=== PATIENT | male | born 1940 | race Caucasian/White ===

== ENCOUNTER 2017-12-25 14:09 | Emergency (ER) | payer MEDICARE, OTHER ==
[~2017-12-25] VITALS: Ht 188 cm; Wt 115.7 kg
[~2017-12-25 14:09] MED LIST: ALBU90OI61 INH; AMIO200; AMIO200 PO; AMLO5 PO; ASCO1ER; ASCO500 PO; ASPI81EC; ASPI81EC PO; CALCAVITD; CALCAVITD PO; CARV6.25; DIPH50; FURO40 PO; GARCINIA CAMBO1 EACH; LEVSOD50 PO; LISI5; LOSA25 PO; MULVITB&C PO; MULVITMIND PO; MULVITMINF; NAPR220 PO; NAPR375 PO; NEBI10 PO; NEBI5 PO; NIACIN FLUSH FREE; Norco 5-325 Ta1 EACH PO; OMEP20ER PO; POTCHL20ER PO; PRAV20; PRAV20 PO; PROBIOTIC1 EAC1; Vitamin C100 M1 PO; WARF5
[2017-12-25 16:36] LABS: BASOPHILS ABSOLUTE AUTO 0.06 K/mm3 (0.00-0.23); BASOPHILS PERCENT AUTO 1 % (0-2); EOSINOPHILS PERCENT AUTO 6 % (0-6); Hematocrit 40.1 % (37.0-53.0); Hemoglobin 12.8 g/dL (13.5-17.5); IMMATURE GRAN ABSOLUTE AUTO 0.03 K/mm3 (0.00-0.10); IMMATURE GRAN PERCENT AUTO 0 % (0-1); LYMPHOCYTES PERCENT AUTO 13 % (21-46); MONOCYTES ABSOLUTE AUTO 0.52 K/mm3 (0.16-1.47); MONOCYTES PERCENT AUTO 7 % (4-13); Mean Corpuscular HGB 29.2 pg (26.0-34.0); Mean Corpuscular HGB Conc 31.9 g/dL (31.5-36.5); Mean Corpuscular Volume 92 fL (80-100); Mean Platelet Volume 9.2 fL (9.1-12.4); NEUTROPHILS ABSOLUTE AUTO 5.71 K/mm3 (1.96-9.15); NEUTROPHILS PERCENT AUTO 73 % (41-73); Platelet Count 247 K/mm3 (150-400); RDW Coefficient Variation 13.7 % (11.7-14.2); RDW Standard Deviation 46.5 fL (35.1-46.3); Red Blood Cell Count 4.38 M/mm3 (4.30-5.90); White Blood Cell Count 7.82 K/mm3 (4.00-11.30)
[2017-12-25 17:11] LABS: Alanine Aminotransfer (ALT/SGP 34 U/L (12-78); Albumin, Blood 3.8 g/dL (3.4-5.0); Albumin/Globulin Ratio 1.1 (0.8-1.8); Alk Phos 121 U/L (50-136); Anion Gap 6 mmol/L (6-16); Aspartate Aminotrans (AST/SGOT 29 U/L (12-37); Bilirubin, Total 0.8 mg/dL (0.1-1.0); Blood Urea Nitrogen 16 mg/dL (8-24); Bun/Creatinine Ratio 14.2 (12.0-20.0); CO2, Blood 27 mmol/L (21-32); Chloride, Blood 108 mmol/L (98-108); Creatinine, Blood 1.13 mg/dL (0.60-1.20); Globulin, Blood 3.6 g/dL (2.2-4.0); Glomerular Filtration Rate >60 (60-); Glucose, Blood 119 mg/dL (70-99); Potassium, Blood 4.3 mmol/L (3.5-5.5); Sodium, Blood 141 mmol/L (136-145); Total Protein, Blood 7.4 g/dL (6.4-8.2)
[2017-12-25] MEDS ORDERED: Bactrim 400-801 EACH PO (20:27)
[2017-12-25] MEDS ORDERED: CEPH500 PO (20:27)
== END 2017-12-25 21:09 | disposition home or self-care (01) ==
LOC: ER 14:09
PROVIDERS: Emergency Medicine
DX: L03.115 Cellulitis of right lower limb (principal); J44.9 Chronic obstructive pulmonary disease, unspecified; Z88.8 Allergy status to other drugs, medicaments and biological substances; Z79.899 Other long term (current) drug therapy; Z79.82 Long term (current) use of aspirin; Z87.891 Personal history of nicotine dependence
CPT/HCPCS: 36415; 80053; 83880; 85025

== ENCOUNTER 2018-07-20 11:26 | Day surgery (SDC) | payer MEDICARE, OTHER ==
[~2018-07-20] VITALS: Ht 188 cm; Wt 117.2 kg
[~2018-07-20 11:26] MED LIST changes: +ALL DAY ALLERGY10 M1 PO; +Amiodarone HCl200 MG PO; +Aspirin EC81 MG PO; +Bactrim 400-801 EACH PO; +CEPH500 PO; +Cleocin HCl300 MG PO; +GARCINIA CAMBO1 EACH PO; +Hytrin2 MG PO; +LOSA50 PO; +MAGOXI400 PO; +Multiple Vitam1 EAC1 PO; +OMEPRAZOLE MAGN20 MG PO; +PROAIR RESPICL90 MCG INH; +Penlac6.6 ML TOP; +Pravachol40 MG PO; +Super B Comple150 MG PO; +TRIA15CR3 TOP; +Unithroid75 MCG PO; +VITAMIN D31000 UNIT PO; +Vitamin C500 M3 PO
--- NOTE | 2018-07-20 13:38 | NUR ---
07/20/18 1338 AT 1318 PT STATED THAT HE DID NOT WANT TO WAIT FOR PROCEDURE. HIS SCHEDULED TIME WAS 1300 AND [facility]AL HAD TWO PATIENTS TO GO BEFORE HIM. [facility] BEHIND SCHEDULE. PT WAS NOT UPSET AND WANTED TO LEAVE REGARDLESS OF DOING HIS PREP. IV TAKEN OUT. IV CATHTER TIP INTACT. 75ML LR USED. PT DISCHARGE TO HOME WITH AT 1325
== END 2018-07-20 13:25 | disposition home or self-care (01) ==
LOC: ORSCSDS 11:26
DX: Z12.11 Encounter for screening for malignant neoplasm of colon (principal); Z53.9 Procedure and treatment not carried out, unspecified reason
CPT/HCPCS: J7120

== ENCOUNTER → 2020-06-15 | Outpatient (CLI) | payer MEDICARE, OTHER ==
[~2020-06-15] MED LIST changes: +ALBU90OI INH; +Bisoprolol Fumar5 MG PO; +C COMPLEX1000 MG PO; +CLOB.05TO; +GARCINIA CAMBOGIA PO; +LEVSOD100 PO; +MAGNESIUM OXID500 MG PO; +ZYRTEC10 M2 PO
[2020-06-15 12:29] LABS: BASOPHILS ABSOLUTE AUTO 0.03 K/mm3 (0.00-0.23); BASOPHILS PERCENT AUTO 1 % (0-2); EOSINOPHILS ABSOLUTE AUTO 0.15 K/mm3 (0.00-0.68); EOSINOPHILS PERCENT AUTO 3 % (0-6); Hematocrit 35.6 % (37.0-53.0); IMMATURE GRAN ABSOLUTE AUTO 0.02 K/mm3 (0.00-0.10); IMMATURE GRAN PERCENT AUTO 0 % (0-1); LYMPHOCYTES ABSOLUTE AUTO 0.89 K/mm3 (0.84-5.20); LYMPHOCYTES PERCENT AUTO 19 % (21-46); MONOCYTES ABSOLUTE AUTO 0.53 K/mm3 (0.16-1.47); MONOCYTES PERCENT AUTO 11 % (4-13); Mean Corpuscular HGB 30.2 pg (26.0-34.0); Mean Corpuscular HGB Conc 33.7 g/dL (31.5-36.5); Mean Corpuscular Volume 90 fL (80-100); Mean Platelet Volume 9.6 fL (9.1-12.4); NEUTROPHILS ABSOLUTE AUTO 3.04 K/mm3 (1.96-9.15); NEUTROPHILS PERCENT AUTO 65 % (41-73); Platelet Count 202 K/mm3 (150-400); RDW Coefficient Variation 13.5 % (11.7-14.2); RDW Standard Deviation 43.9 fL (35.1-46.3); Red Blood Cell Count 3.97 M/mm3 (4.30-5.90); White Blood Cell Count 4.66 K/mm3 (4.00-11.30)
[2020-06-15 12:37] LABS: Albumin, Blood 3.8 g/dL (3.4-5.0); Albumin/Globulin Ratio 1.2 (0.8-1.8); Bilirubin, Total 0.5 mg/dL (0.1-1.0); Bun/Creatinine Ratio 21.7 (12.0-20.0); Calcium, Blood 9.3 mg/dL (8.5-10.1); Creatinine, Blood 1.29 mg/dL (0.60-1.20); Globulin, Blood 3.1 g/dL (2.2-4.0); Potassium, Blood 3.8 mmol/L (3.5-5.5); Total Protein, Blood 6.9 g/dL (6.4-8.2)
[2020-06-15 12:52] LABS: CHOL/HDL RATIO 2.9; Cholesterol 124 mg/dL (50-200); Free Thyroxine 1.36 ng/dL (0.70-1.60); HDL Cholesterol 43 mg/dL (>39); LDL/HDL RATIO 1.6; Low Density Lipoprotein Chol 67 mg/dL (<110); Thyroid Stimulating Hormone 3.592 uIU/mL (0.360-4.800); Triglycerides 71 mg/dL (30-160); Very Low Density Lipoprot Chol 14 mg/dL (6-32)
== END | disposition home or self-care (01) ==
LOC: LAB SHORT 12:16 → LAB EV 12:16
PROVIDERS: General Practice
DX: I48.91 Unspecified atrial fibrillation (principal); R53.81 Other malaise
CPT/HCPCS: 80053; 80061; 84439; 84443; 85025

== ENCOUNTER → 2022-07-14 | Outpatient (CLI) | payer MEDICARE, OTHER | END | disposition home or self-care (01) | LOC: LAB SHORT 08:18 → PLD 08:18 | DX: L60.2 Onychogryphosis (principal); B35.1 Tinea unguium | CPT/HCPCS: 88305; 88312 ==

== ENCOUNTER 2022-10-25 09:06 | Inpatient (IN) | payer MEDICARE, OTHER ==
[~2022-10-25] VITALS: Ht 185.4 cm; Wt 97.0 kg
[2022-10-25 10:20] LABS: BASOPHILS ABSOLUTE AUTO 0.01 K/mm3 (0.00-0.23); BASOPHILS PERCENT AUTO 0 % (0-2); EOSINOPHILS PERCENT AUTO 0 % (0-6); Hematocrit 28.3 % (37.0-53.0); Hemoglobin 9.5 g/dL (13.5-17.5); IMMATURE GRAN ABSOLUTE AUTO 0.01 K/mm3 (0.00-0.10); IMMATURE GRAN PERCENT AUTO 0 % (0-1); LYMPHOCYTES ABSOLUTE AUTO 0.51 K/mm3 (0.84-5.20); LYMPHOCYTES PERCENT AUTO 8 % (21-46); MONOCYTES ABSOLUTE AUTO 0.49 K/mm3 (0.16-1.47); MONOCYTES PERCENT AUTO 8 % (4-13); Mean Corpuscular HGB 30.4 pg (26.0-34.0); Mean Corpuscular HGB Conc 33.6 g/dL (31.5-36.5); Mean Corpuscular Volume 90 fL (80-100); Mean Platelet Volume 9.8 fL (9.1-12.4); NEUTROPHILS ABSOLUTE AUTO 5.16 K/mm3 (1.96-9.15); NEUTROPHILS PERCENT AUTO 83 % (41-73); Platelet Count 140 K/mm3 (150-400); RDW Coefficient Variation 15.2 % (11.7-14.2); RDW Standard Deviation 49.3 fL (35.1-46.3); Red Blood Cell Count 3.13 M/mm3 (4.30-5.90); White Blood Cell Count 6.18 K/mm3 (4.00-11.30)
[2022-10-25 10:37] LABS: Bun/Creatinine Ratio 17.1 (12.0-20.0); Calcium, Blood 9.1 mg/dL (8.5-10.1); Creatinine, Blood 1.58 mg/dL (0.60-1.20); Magnesium, Blood 2.2 mg/dL (1.6-2.4); Potassium, Blood 2.9 mmol/L (3.5-5.5)
[2022-10-25 11:01] LABS: Base Excess Venous 6.6 mmol/L; PCO2 Venous 37.7 mmHg (38-42); pH Blood Venous 7.51 (7.34-7.37)
[2022-10-25 13:14] LABS: Influenza A, PCR NEGATIVE (NEGATIVE); Influenza B, PCR NEGATIVE (NEGATIVE); Resp Syncytial Virus, PCR NEGATIVE (NEGATIVE); SARS-Cov-2 (COVID-19) PCR, MMC NEGATIVE (NEGATIVE)
[2022-10-25 13:59] LABS: Albumin, Blood 3.2 g/dL (3.4-5.0); Albumin/Globulin Ratio 0.9 (0.8-1.8); Bilirubin, Direct 0.6 mg/dL (0.0-0.3); Bilirubin, Indirect 0.5 mg/dL (0.1-0.7); Bilirubin, Total 1.1 mg/dL (0.1-1.0); Globulin, Blood 3.5 g/dL (2.2-4.0); Total Protein, Blood 6.7 g/dL (6.4-8.2)
[2022-10-25] MEDS ORDERED: Ventolin/Proventil INH (14:16)
[2022-10-25] MEDS ORDERED: AMIODARONE HCL200 M1 PO (14:18)
[2022-10-25] MEDS ORDERED: AMLO10 PO (14:19)
[2022-10-25] MEDS ORDERED: ASPI81CH PO (14:20)
[2022-10-25] MEDS ORDERED: Bisoprolol Fuma10 MG PO (14:21)
[2022-10-25] MEDS ORDERED: SYNTHROID125 MC1 PO (14:22)
[2022-10-25] MEDS ORDERED: LOSARTAN POTAS100 M1 PO (14:23)
[2022-10-25] MEDS ORDERED: OMEP20ER PO (14:24)
[2022-10-25] MEDS ORDERED: PRAVASTATIN SOD10 M1 PO (14:25)
[2022-10-25] MEDS ORDERED: Hytrin2 MG PO (14:27)
[2022-10-25] MEDS ORDERED: TORS10 PO (14:28)
--- NOTE | 2022-10-25 18:14 | NUR ---
PCU ADMIT / END OF SHIFT NOTE PT BROUGHT TO PCU-08 BY TE[facility]O FROM ER @ APPROX 1500. PT A&O X4, ABLE TO WEAKLY STAND & AMBULATE FROM [facility] TO PCU BED, HOLDING ONTO THE FURNITURE & STAFF. PT REPORTS USING A CANE AT HOME. PT VSS. SPO2 > 92% ON 4L NC. PT REPORTS RA @ BASELINE. PT W/ OCCASSIONAL COUGH, PRODUCING THICK, OLMSTEAD, PINK TINGED SPUTUM. PT SOB W/ ACTIVITY. MONITOR SHOWING SB, HR 50s. PACER NOTED TO LCW. PT REPORTING SWELLING TO BLE "ALREADY GETTING BETTER" W/ DIURETICS RECIEVED IN HOSPITAL. PT BLE W/ BROWN/RED DISCOLORATION & THICK CALLUSED SKIN.
[2022-10-26 03:34] LABS: BASOPHILS PERCENT AUTO 0 % (0-2); EOSINOPHILS ABSOLUTE AUTO 0.01 K/mm3 (0.00-0.68); EOSINOPHILS PERCENT AUTO 0 % (0-6); Hematocrit 29.1 % (37.0-53.0); Hemoglobin 9.4 g/dL (13.5-17.5); IMMATURE GRAN ABSOLUTE AUTO 0.02 K/mm3 (0.00-0.10); IMMATURE GRAN PERCENT AUTO 0 % (0-1); LYMPHOCYTES ABSOLUTE AUTO 0.79 K/mm3 (0.84-5.20); LYMPHOCYTES PERCENT AUTO 15 % (21-46); MONOCYTES ABSOLUTE AUTO 0.42 K/mm3 (0.16-1.47); MONOCYTES PERCENT AUTO 8 % (4-13); Mean Corpuscular HGB 28.7 pg (26.0-34.0); Mean Corpuscular HGB Conc 32.3 g/dL (31.5-36.5); Mean Corpuscular Volume 89 fL (80-100); Mean Platelet Volume 9.8 fL (9.1-12.4); NEUTROPHILS ABSOLUTE AUTO 4.13 K/mm3 (1.96-9.15); NEUTROPHILS PERCENT AUTO 77 % (41-73); Platelet Count 135 K/mm3 (150-400); RDW Coefficient Variation 15.1 % (11.7-14.2); RDW Standard Deviation 49.4 fL (35.1-46.3); Red Blood Cell Count 3.27 M/mm3 (4.30-5.90); White Blood Cell Count 5.37 K/mm3 (4.00-11.30)
[2022-10-26 03:49] LABS: Albumin, Blood 2.9 g/dL (3.4-5.0); Anion Gap 6 mmol/L (6-16); Blood Urea Nitrogen 28 mg/dL (8-24); Bun/Creatinine Ratio 18.9 (12.0-20.0); CO2, Blood 29 mmol/L (21-32); Calcium, Blood 9.2 mg/dL (8.5-10.1); Chloride, Blood 105 mmol/L (98-108); Creatinine, Blood 1.48 mg/dL (0.60-1.20); Glomerular Filtration Rate 48 (60-); Glucose, Blood 97 mg/dL (70-99); Magnesium, Blood 2.2 mg/dL (1.6-2.4); Phosphorus, Blood 2.3 mg/dL (2.5-4.9); Potassium, Blood 3.3 mmol/L (3.5-5.5); Sodium, Blood 140 mmol/L (136-145)
--- NOTE | 2022-10-26 06:15 | NUR ---
SHIFT SUMMARY PT REMAINS A&0 X4; PLEASANT AND COOPERATIVE WITH CARE. VSS THROUGHOUT SHIFT; ALTHOUGH SBP SOFT IN 100'S. PM BLOOD PRESSURE MEDS HELD. 0430 VS; SBP 125. PT REMAINS ON 4 L O2 VIA NC; SPO2 93 - 97%. PT CONTINUES TO HAVE A PRODUCTIVE COUGH; PT'S SPUTUM IS OLMSTEAD COLOR W/BLOOD TINGE. PT ALSO REPORTS HIS NOSE IS "CLOGGED SOME", PT STATES AT TIMES THIS MAKES IT DIFFICULT TO BREATH. PT REPORTED "GREEN MUCOUS" OUT OF NOSE. THIS RN DID NOT SEE THIS. PT UP TO BATHROOM W/FWW AND ONLY ASSISTANCE WITH CORDS AND LINES. PT HAD BM X1 THIS SHIFT; REPORTS IT WAS LOOSE AND DIARRHEA. PT TOLERATED AMBULATING WELL, ALTHOUGH MILD SOB NOTED. SPO2 MAINTAINED WHILE UP AND MOVING. NO ACUTE CHANGES THROUGHOUT SHIFT. CALL LIGHT IN REACH. WILL UPDATE ONCOMING RN
--- NOTE | 2022-10-26 18:13 | NUR ---
PT SUMMARY: PT TRANSITIONED TO MEDICAL STATUS WITH NO TELE. VITALS HR 80'S, SATS ABOVE 90% ON 4L PT DESATS WITH AMBULATION NEEDING 6L WITH EXERTION, PT HAS BEEN AMBULATING TO THE BATHROOM, SBP 130'S, AFIB. PT ALERT AND ORIENTED X4, PLEASANT AND COOPERATIVE WITH CARE. PT HAS BEEN COUGHING UP BLOODY SPUTUM DR BURDEN IS AWARE. PT DENIES ANY PAIN, PT HAS GROIN PAIN DUE TO HERNIA WHEN GETTING BACK IN BED AND IS TOLERABLE PER PT. TOLERATING PO FOOD AND FLUID, DIURESING. FAMILY CAME IN TO VISIT. NO OTHER ISSUES REPORTED, PT CALLS APPROPIRATELY, CALL LIGHTS IN REACH, WILL REPORT TO ONCOMING SHIFT
--- NOTE | 2022-10-26 21:24 | NUR ---
ASSUMPTION OF CARE 1899 THIS RN ASSUMED CARE OF PT AT 1900, REPORT FROM ALYSA FRY. PT AWAKE IN ROOM, "GETTING READY TO TRY AND SLEEP'. VSS. PT DENIES CP, PRESSURE OR SOB. REPORTS MILD SOB W/EXERTION. PT A&0 X4, PLEASANT AND COOPERATIVE. PT LS COARSE AND WHEEZING NOTED. PT STILL HAVING PRODUCTIVE COUGH W/OLMSTEAD COLORED SPUTUM MIXED W/BLOOD. PT ABDOMEN FIRM AND MILDLY DISTENDED; PT DENIES PAIN OR TENDERNESS. PT STATES "IS NORMAL SOMETIMES AND HASNT HAD BM TODAY". PT DENIES ANY OTHER NEEDS OR CONCERNS AT THIS TIME. CALL LIGHT IN REACH
[2022-10-27 05:00] LABS: Hematocrit 28.7 % (37.0-53.0); Hemoglobin 9.4 g/dL (13.5-17.5); Mean Corpuscular HGB 30.2 pg (26.0-34.0); Mean Corpuscular HGB Conc 32.8 g/dL (31.5-36.5); Mean Corpuscular Volume 92 fL (80-100); Platelet Count 140 K/mm3 (150-400); RDW Coefficient Variation 14.9 % (11.7-14.2); RDW Standard Deviation 48.3 fL (35.1-46.3); Red Blood Cell Count 3.11 M/mm3 (4.30-5.90); White Blood Cell Count 4.55 K/mm3 (4.00-11.30)
[2022-10-27 05:40] LABS: BAND PERCENT MAN 2 % (0-8); BASOPHILS PERCENT MAN 0 % (0-2); EOSINOPHILS PERCENT MAN 0 % (0-6); LYMPHOCYTES % ATYPICAL MANUAL 1 % (0-0); LYMPHOCYTES ABSOLUTE MAN 0.72 K/mm3 (0.84-5.20); LYMPHOCYTES PERCENT MAN 15 % (21-46); MONOCYTES ABSOLUTE MAN 0.59 K/mm3 (0.16-1.47); MONOCYTES PERCENT MAN 13 % (4-13); NEUTROPHILS ABSOLUTE MAN 3.23 K/mm3 (1.96-9.15); SEG NEUTROPHILS PERCENT MAN 69 % (41-73); TOTAL CELLS COUNTED 100
[2022-10-27 05:41] LABS: Albumin, Blood 2.8 g/dL (3.4-5.0); Anion Gap 5 mmol/L (6-16); Blood Urea Nitrogen 24 mg/dL (8-24); Bun/Creatinine Ratio 19.7 (12.0-20.0); CO2, Blood 29 mmol/L (21-32); Chloride, Blood 106 mmol/L (98-108); Creatinine, Blood 1.22 mg/dL (0.60-1.20); Glomerular Filtration Rate 60 (60-); Glucose, Blood 103 mg/dL (70-99); Phosphorus, Blood 2.2 mg/dL (2.5-4.9); Potassium, Blood 3.3 mmol/L (3.5-5.5); Sodium, Blood 140 mmol/L (136-145)
--- NOTE | 2022-10-27 06:24 | NUR ---
SHIFT SUMMARY PT REMAINS A&O X4. PT SLEPT FAIRLY WELL THROUGHOUT SHIFT. VSS; SBP 120'S. PT CURRENTLY ON 3 L, SPO2 93 - 96%. PT ON 2 - 3 L THROUGHOUT THE NIGHT W/SPO2 >92%. ALTHOUGH PT DOES BECOME SOB W/EXERTION BUT RECOVERS WELL; O2 INCREASED TO 4 L WHEN UP USING THE BATHROOM. NO ACUTE EVENTS OVERNIGHT. PT UP W/FWW TO USE BATHROOM W/ONLY ASSISTANCE FOR CORD MANAGEMENT. PT DOES COMPLAIN OF CONGESTION IN HIS NOSE; PT HAS NASAL SPRAY AT BEDSIDE THAT HE IS USING. NO OTHER CHANGES OR CONCERNS. CALL LIGHT IN REACH, WILL UPDATE ONCOMING RN
--- NOTE | 2022-10-27 18:38 | NUR ---
SHIFT SUMMARY- PT ALERT AND ORIENTED, CALLS APPROPRIATELY, 1PA TO THE BATHROOM. PT HAS TO SIT TO PEE SO THERE IS A HAT IN THE BATHROOM TO MEASURE I&O'S. PT RECIEVED IV LASIX THIS EVENING SBP 130 AT THE TIME OF ADMINISTRATION. PT IS CURRENTLY SITTING UP IN BED, CALL LIGHT IN REACH NO S&S OF DISTRESS. PT CURRENTLY ON 2L NC SATS GREATER THAN 90%. RA AT BASELINE, COARSE LUNGSOUNDS T/O SOME CRACKLES ON THE LEFT. PLAN IS FOR DISCHARGE HOME ONCE MEDICALLY STABLE. WILL CTM AND PASS ON TO NIGHT RN IN BEDSIDE REPORT.
--- NOTE | 2022-10-28 04:15 | NUR ---
FERRYBOAT OPERATOR CABLE SUMMARY NO ACUTE EVENTS THROUGHOUT THE NIGHT. A&OX4. PATIENT EFFECTIVELY COMMUNICATES NEEDS. RR EVEN AND UNLABORED AT REST ON 3LO2. SUPPLEMENTAL O2 INCREASED TO 4L DURING ACTIVITY. PATIENT'S REPORTED BASELINE IS RA. VS STABLE OTHERWISE. BED LOW AND LOCKED. CALL LIGHT WITHIN REACH. THIS RN WILL CONTINUE TO MONITOR.
[2022-10-28 04:58] LABS: BASOPHILS ABSOLUTE AUTO 0.01 K/mm3 (0.00-0.23); BASOPHILS PERCENT AUTO 0 % (0-2); EOSINOPHILS ABSOLUTE AUTO 0.04 K/mm3 (0.00-0.68); EOSINOPHILS PERCENT AUTO 1 % (0-6); Hematocrit 28.6 % (37.0-53.0); Hemoglobin 9.3 g/dL (13.5-17.5); IMMATURE GRAN ABSOLUTE AUTO 0.01 K/mm3 (0.00-0.10); IMMATURE GRAN PERCENT AUTO 0 % (0-1); LYMPHOCYTES PERCENT AUTO 19 % (21-46); MONOCYTES ABSOLUTE AUTO 0.45 K/mm3 (0.16-1.47); MONOCYTES PERCENT AUTO 10 % (4-13); Mean Corpuscular HGB 28.8 pg (26.0-34.0); Mean Corpuscular HGB Conc 32.5 g/dL (31.5-36.5); Mean Corpuscular Volume 89 fL (80-100); Mean Platelet Volume 9.4 fL (9.1-12.4); NEUTROPHILS ABSOLUTE AUTO 3.29 K/mm3 (1.96-9.15); NEUTROPHILS PERCENT AUTO 70 % (41-73); Platelet Count 148 K/mm3 (150-400); RDW Coefficient Variation 14.6 % (11.7-14.2); RDW Standard Deviation 47.8 fL (35.1-46.3); Red Blood Cell Count 3.23 M/mm3 (4.30-5.90)
[2022-10-28 05:21] LABS: Albumin/Globulin Ratio 0.9 (0.8-1.8); Bilirubin, Total 1.3 mg/dL (0.1-1.0); Bun/Creatinine Ratio 16.5 (12.0-20.0); Calcium, Blood 9.4 mg/dL (8.5-10.1); Creatinine, Blood 1.09 mg/dL (0.60-1.20); Globulin, Blood 3.5 g/dL (2.2-4.0); Potassium, Blood 3.3 mmol/L (3.5-5.5); Total Protein, Blood 6.5 g/dL (6.4-8.2)
--- NOTE | 2022-10-28 18:40 | NUR ---
SHIFT SUMMARY: PT A&O X4. PT HAS BEEN VERY PLEASANT AND COOPERATIVE WITH ALL CARE. NO ACUTE CHANGES WITH PT THIS SHIFT. PT RECEIVED HUMIDIFER FOR O2 DUE TO NOSEBLEEDS. PT STATES THIS IS NORMAL FOR HIM. PT STATES HIS COUGH IS IMPROVING. PT RECEIVED CHEST X-RAY THIS EVENING WHICH SHOWED IMPROVING PULMONARY EDEMA. NO C/O PAIN OR N/V. PT HAS 2+ EDEMA IN BLE. PT STATES THIS IS NORMAL FOR HIM. PT SB ASSIST W/FWW. IV IN R. HAND PATENT AND FLUSHING WELL. WAS NOT ABLE TO ADDRESS RESTLESS LEG WITH DOCTOR TODAY. WILL PASS ON TO PROFESSOR OF GEOGRAPHY NURSE. CALL LIGHT IN REACH. BED IN LOWEST POSITION. WILL CONTINUE TO MONITOR.
--- NOTE | 2022-10-29 04:57 | NUR ---
SHIFT SUMMARY 82 YR M ADMITTED ON 10/25/22 FOR CHF/ LLL PNA. FULL CODE. NO ACUTE CHANGES THIS SHIFT. PT IS URINATING OFTEN AND IS ABLE TO AMBULATE TO THE BATHROOM AND CALLS APPROPRIATELY FOR ASSISTANCE WITH GETTING OFF OF THE TOILET. NO C/O PAIN OR DISCOMFORTH THIS SHIFT AND PT DENIES CHEST PAIN OR PRESSURE. HE IS VERY PLEASANT AND COOPERATIVE WITH CARE.
[2022-10-29 06:42] LABS: BASOPHILS ABSOLUTE AUTO 0.01 K/mm3 (0.00-0.23); BASOPHILS PERCENT AUTO 0 % (0-2); EOSINOPHILS PERCENT AUTO 2 % (0-6); Hematocrit 28.9 % (37.0-53.0); Hemoglobin 9.5 g/dL (13.5-17.5); IMMATURE GRAN ABSOLUTE AUTO 0.03 K/mm3 (0.00-0.10); IMMATURE GRAN PERCENT AUTO 1 % (0-1); LYMPHOCYTES ABSOLUTE AUTO 0.94 K/mm3 (0.84-5.20); LYMPHOCYTES PERCENT AUTO 18 % (21-46); MONOCYTES ABSOLUTE AUTO 0.48 K/mm3 (0.16-1.47); MONOCYTES PERCENT AUTO 9 % (4-13); Mean Corpuscular HGB 30.2 pg (26.0-34.0); Mean Corpuscular HGB Conc 32.9 g/dL (31.5-36.5); Mean Corpuscular Volume 92 fL (80-100); Mean Platelet Volume 9.7 fL (9.1-12.4); NEUTROPHILS ABSOLUTE AUTO 3.56 K/mm3 (1.96-9.15); NEUTROPHILS PERCENT AUTO 69 % (41-73); Platelet Count 177 K/mm3 (150-400); RDW Coefficient Variation 14.7 % (11.7-14.2); Red Blood Cell Count 3.15 M/mm3 (4.30-5.90); White Blood Cell Count 5.12 K/mm3 (4.00-11.30)
[2022-10-29 06:56] LABS: Albumin/Globulin Ratio 0.8 (0.8-1.8); Bilirubin, Total 1.3 mg/dL (0.1-1.0); Calcium, Blood 9.5 mg/dL (8.5-10.1); Creatinine, Blood 0.94 mg/dL (0.60-1.20); Globulin, Blood 3.7 g/dL (2.2-4.0); Potassium, Blood 3.4 mmol/L (3.5-5.5); Total Protein, Blood 6.7 g/dL (6.4-8.2)
--- NOTE | 2022-10-29 16:57 | NUR ---
SPN SHIFT SUMMARY Pt LUNG SOUNDS WERE WHEEZY UPON ASSESSMENT, Pt HAS BEEN UP TO TOILET SEVERAL TIMES THIS SHIFT OUTPUT HAS BEEN NOTED. INCREASED LASIX THIS AFTERNOON. Pt IS A STAND BY ASSIST WITH FRONT WHEEL WALKER. ON 2 LITERS OF O2 VIA N/C. Pt WOKE UP FROM AFTERNOON NAP AND NEEDED NEB TREATMENT, RT WAS CALLED. AFTER TREATMENT Pt STATED HE FELT BETTER. CALL LIGHT IS IN REACH, WILL CONTINIUE TO PROVIDE CARE AND MONITOR.
[2022-10-30 05:06] LABS: BASOPHILS ABSOLUTE AUTO 0.02 K/mm3 (0.00-0.23); BASOPHILS PERCENT AUTO 0 % (0-2); EOSINOPHILS ABSOLUTE AUTO 0.12 K/mm3 (0.00-0.68); EOSINOPHILS PERCENT AUTO 2 % (0-6); Hematocrit 29.7 % (37.0-53.0); Hemoglobin 9.6 g/dL (13.5-17.5); IMMATURE GRAN ABSOLUTE AUTO 0.01 K/mm3 (0.00-0.10); IMMATURE GRAN PERCENT AUTO 0 % (0-1); LYMPHOCYTES ABSOLUTE AUTO 1.09 K/mm3 (0.84-5.20); LYMPHOCYTES PERCENT AUTO 21 % (21-46); MONOCYTES ABSOLUTE AUTO 0.54 K/mm3 (0.16-1.47); MONOCYTES PERCENT AUTO 11 % (4-13); Mean Corpuscular HGB 29.2 pg (26.0-34.0); Mean Corpuscular HGB Conc 32.3 g/dL (31.5-36.5); Mean Corpuscular Volume 90 fL (80-100); Mean Platelet Volume 9.3 fL (9.1-12.4); NEUTROPHILS ABSOLUTE AUTO 3.38 K/mm3 (1.96-9.15); NEUTROPHILS PERCENT AUTO 66 % (41-73); Platelet Count 185 K/mm3 (150-400); RDW Coefficient Variation 14.5 % (11.7-14.2); RDW Standard Deviation 46.6 fL (35.1-46.3); Red Blood Cell Count 3.29 M/mm3 (4.30-5.90); White Blood Cell Count 5.16 K/mm3 (4.00-11.30)
[2022-10-30 05:23] LABS: Albumin/Globulin Ratio 0.8 (0.8-1.8); Bilirubin, Total 1.2 mg/dL (0.1-1.0); Bun/Creatinine Ratio 13.3 (12.0-20.0); Calcium, Blood 9.8 mg/dL (8.5-10.1); Creatinine, Blood 0.98 mg/dL (0.60-1.20); Globulin, Blood 3.6 g/dL (2.2-4.0); Potassium, Blood 3.6 mmol/L (3.5-5.5); Total Protein, Blood 6.6 g/dL (6.4-8.2)
--- NOTE | 2022-10-30 05:47 | NUR ---
SHIFT SUMMARY 82 YR M ADMITTED ON 10/25/22 FOR CHF/LLL PNA. FULL CODE. NO ACUTE CHANGES THIS SHIFT. PT HAS BEEN UP TO THE BATHROOM SEVERAL TIMES THIS SHIFT ADN HE APPEARS TO BE STRONGER AND STEADIER ON HIS FEET THAN HE WAS THE PRIOR NIGHT. HE STATES HE IS FEELING BETTER WELL.
--- NOTE | 2022-10-30 16:37 | NUR ---
SHIFT SUMMARY PATIENT IS ALERT AND ORIENTED. PATIENT HAS HAD NO ACUTE EVENTS THIS SHIFT. VITAL SIGNS REVIEWED. PATIENT HAS NOT COMPLAINED OF SOB, NAUSEA, PAIN OR VOMITTING. PATIENT HAS BEEN A STANDBY ASSIST TO BATHROOM. PATIENT IS DIRUESING WITH GOOD RESULTS. PATIENT IS STILL ON SAME LITER FLOW FOR O2. BED IN LOCKED AND LOWEST POSITION. CALL LIGHT IN PLACE. WILL MONITOR UNTIL SHIFT CHANGE.
[2022-10-31 05:12] LABS: BASOPHILS ABSOLUTE AUTO 0.02 K/mm3 (0.00-0.23); BASOPHILS PERCENT AUTO 0 % (0-2); EOSINOPHILS ABSOLUTE AUTO 0.16 K/mm3 (0.00-0.68); EOSINOPHILS PERCENT AUTO 3 % (0-6); Hematocrit 29.7 % (37.0-53.0); Hemoglobin 9.9 g/dL (13.5-17.5); IMMATURE GRAN ABSOLUTE AUTO 0.02 K/mm3 (0.00-0.10); IMMATURE GRAN PERCENT AUTO 0 % (0-1); LYMPHOCYTES ABSOLUTE AUTO 1.15 K/mm3 (0.84-5.20); LYMPHOCYTES PERCENT AUTO 20 % (21-46); MONOCYTES ABSOLUTE AUTO 0.53 K/mm3 (0.16-1.47); MONOCYTES PERCENT AUTO 9 % (4-13); Mean Corpuscular HGB 30.2 pg (26.0-34.0); Mean Corpuscular HGB Conc 33.3 g/dL (31.5-36.5); Mean Corpuscular Volume 91 fL (80-100); Mean Platelet Volume 9.6 fL (9.1-12.4); NEUTROPHILS ABSOLUTE AUTO 3.93 K/mm3 (1.96-9.15); NEUTROPHILS PERCENT AUTO 68 % (41-73); Platelet Count 219 K/mm3 (150-400); RDW Coefficient Variation 14.5 % (11.7-14.2); Red Blood Cell Count 3.28 M/mm3 (4.30-5.90); White Blood Cell Count 5.81 K/mm3 (4.00-11.30)
--- NOTE | 2022-10-31 05:51 | NUR ---
Shift Summary Pt states he is feeling better. I observed him to be steady on his feet to the bathroom, pt assured me he has been using the restroom by himself. Pt up to the bathroom every 2 hours to void. Alert and oriented, VSS, pleasant and cooperative with care. Slept well t/o the night except for frequent bathroom interruptions.
[2022-10-31 06:14] LABS: Bun/Creatinine Ratio 14.6 (12.0-20.0); Calcium, Blood 9.9 mg/dL (8.5-10.1); Creatinine, Blood 1.03 mg/dL (0.60-1.20); Magnesium, Blood 2.6 mg/dL (1.6-2.4); Potassium, Blood 4.1 mmol/L (3.5-5.5)
--- NOTE | 2022-10-31 16:08 | NUR ---
SHIFT SUMMARY PT IS ALERT AND ORIENTED X4. 2L NC, INDEPENDENT IN ROOM. 02>95%. NO ACUTE CHANGES THIS SHIFT. BED IS IN THE LOWEST POSITION WITH CALL LIGHT IN REACH. PT IS APPROPRIATE AND CALLS WITH NEEDS.
[2022-11-01 05:09] LABS: BASOPHILS ABSOLUTE AUTO 0.02 K/mm3 (0.00-0.23); BASOPHILS PERCENT AUTO 0 % (0-2); EOSINOPHILS ABSOLUTE AUTO 0.18 K/mm3 (0.00-0.68); EOSINOPHILS PERCENT AUTO 3 % (0-6); Hematocrit 29.7 % (37.0-53.0); Hemoglobin 9.6 g/dL (13.5-17.5); IMMATURE GRAN ABSOLUTE AUTO 0.03 K/mm3 (0.00-0.10); IMMATURE GRAN PERCENT AUTO 1 % (0-1); LYMPHOCYTES ABSOLUTE AUTO 1.05 K/mm3 (0.84-5.20); LYMPHOCYTES PERCENT AUTO 20 % (21-46); MONOCYTES ABSOLUTE AUTO 0.57 K/mm3 (0.16-1.47); MONOCYTES PERCENT AUTO 11 % (4-13); Mean Corpuscular HGB 29.6 pg (26.0-34.0); Mean Corpuscular HGB Conc 32.3 g/dL (31.5-36.5); Mean Corpuscular Volume 92 fL (80-100); Mean Platelet Volume 9.6 fL (9.1-12.4); NEUTROPHILS ABSOLUTE AUTO 3.54 K/mm3 (1.96-9.15); NEUTROPHILS PERCENT AUTO 66 % (41-73); Platelet Count 242 K/mm3 (150-400); RDW Coefficient Variation 14.4 % (11.7-14.2); RDW Standard Deviation 46.5 fL (35.1-46.3); Red Blood Cell Count 3.24 M/mm3 (4.30-5.90); White Blood Cell Count 5.39 K/mm3 (4.00-11.30)
[2022-11-01 05:34] LABS: Bun/Creatinine Ratio 14.4 (12.0-20.0); Calcium, Blood 9.9 mg/dL (8.5-10.1); Creatinine, Blood 1.04 mg/dL (0.60-1.20); Potassium, Blood 3.9 mmol/L (3.5-5.5)
--- NOTE | 2022-11-01 05:43 | NUR ---
PT IS A&O4, INDPENDENT WITH FWW, 1L NC SATS MID-LOW 90'S, VSS, NO COMPLAINTS OF PAIN OR DISCOMFORT THIS SHIFT, CONTINUE POC
--- NOTE | 2022-11-01 17:23 | NUR ---
SHIFT SUMMARY NO ACUTE CHANGES DURING SHIFT. PT ALERT AND ORIENTED, CALLS APPROPRIATELY. NO C/O PAIN, 1L NC, INDEPENDENT IN ROOM. IV LASIX BID, 1500ML RESTRICTION. WILL CONTINUE TO MONITOR. CALL LIGHT WITHIN REACH.
[2022-11-02 05:38] LABS: BASOPHILS ABSOLUTE AUTO 0.03 K/mm3 (0.00-0.23); BASOPHILS PERCENT AUTO 1 % (0-2); EOSINOPHILS ABSOLUTE AUTO 0.18 K/mm3 (0.00-0.68); EOSINOPHILS PERCENT AUTO 3 % (0-6); Hematocrit 32.3 % (37.0-53.0); Hemoglobin 10.4 g/dL (13.5-17.5); IMMATURE GRAN ABSOLUTE AUTO 0.02 K/mm3 (0.00-0.10); IMMATURE GRAN PERCENT AUTO 0 % (0-1); LYMPHOCYTES PERCENT AUTO 23 % (21-46); MONOCYTES ABSOLUTE AUTO 0.59 K/mm3 (0.16-1.47); MONOCYTES PERCENT AUTO 10 % (4-13); Mean Corpuscular HGB 28.4 pg (26.0-34.0); Mean Corpuscular HGB Conc 32.2 g/dL (31.5-36.5); Mean Corpuscular Volume 88 fL (80-100); Mean Platelet Volume 9.3 fL (9.1-12.4); NEUTROPHILS ABSOLUTE AUTO 3.56 K/mm3 (1.96-9.15); NEUTROPHILS PERCENT AUTO 63 % (41-73); Platelet Count 325 K/mm3 (150-400); RDW Coefficient Variation 14.6 % (11.7-14.2); RDW Standard Deviation 46.8 fL (35.1-46.3); Red Blood Cell Count 3.66 M/mm3 (4.30-5.90); White Blood Cell Count 5.68 K/mm3 (4.00-11.30)
--- NOTE | 2022-11-02 05:43 | NUR ---
SHIFT SUMMARY PT IS A&O4, INDEPENDENT WITH FWW TO BR, NOW RA WITH SATS IN THE MID TO UPPER 90'S, VSS, NO COMPLAINTS OF PAIN OR DISCOMFORT OVERNIGHT, CONTINUE POC
[2022-11-02 06:13] LABS: Bun/Creatinine Ratio 15.1 (12.0-20.0); Calcium, Blood 10.1 mg/dL (8.5-10.1); Creatinine, Blood 1.06 mg/dL (0.60-1.20); Potassium, Blood 3.9 mmol/L (3.5-5.5)
[2022-11-02] MEDS ORDERED: METO50ER PO (12:22)
[2022-11-02] MEDS ORDERED: PROAIR RESPICL90 MCG INH (12:28)
--- NOTE | 2022-11-02 13:29 | NUR ---
DISCHARGE SUMMARY DISCHARGE, FOLLOWUP, AND MEDICATION INSTRUCTIONS GIVEN TO PT. PT VOICED COMPLETE UNDERSTANDING AND HAS NO QUESTIONS AT THIS TIME. IV REMOVED WITH CATHETER TIP INTACT. WILL CONTINUE TO MONITOR UNTIL PT LEAVES.
== END 2022-11-02 15:15 | disposition home or self-care (01) | DRG 291 ==
LOC: ER 09:06 → MEDS 13:05 → PCU 13:05 → MEDS 10-27 15:51
PROVIDERS: Family Medicine; Internal Medicine; Student in an Organized Health Care Education/Training Program; ADMIT Family Medicine
DX: I13.0 Hypertensive heart and chronic kidney disease with heart failure and stage 1 through stage 4 chronic kidney disease, or unspecified chronic kidney disease (principal); A41.9 Sepsis, unspecified organism; I50.33 Acute on chronic diastolic (congestive) heart failure; J15.9 Unspecified bacterial pneumonia; J96.01 Acute respiratory failure with hypoxia; J44.0 Chronic obstructive pulmonary disease with (acute) lower respiratory infection; Z20.822 Contact with and (suspected) exposure to COVID-19; Z23 Encounter for immunization; R14.0 Abdominal distension (gaseous); I71.9 Aortic aneurysm of unspecified site, without rupture; E87.6 Hypokalemia; G47.33 Obstructive sleep apnea (adult) (pediatric); E03.9 Hypothyroidism, unspecified; I73.9 Peripheral vascular disease, unspecified; I48.0 Paroxysmal atrial fibrillation; N18.30 Chronic kidney disease, stage 3 unspecified; Z95.810 Presence of automatic (implantable) cardiac defibrillator; Z95.4 Presence of other heart-valve replacement; Z98.890 Other specified postprocedural states; Z88.1 Allergy status to other antibiotic agents; Z88.2 Allergy status to sulfonamides; Z88.8 Allergy status to other drugs, medicaments and biological substances; Z79.82 Long term (current) use of aspirin; Z79.899 Other long term (current) drug therapy
CPT/HCPCS: 0241U; 36415; 71045; 71046; 74018; 80048; 80053; 80069; 80076; 82803; 83605; 83735; 83880; 84145; 85025; 87040; 90686; 93005; 93010; 94640; 94660; 94664; 94760; 94762; 96365; 96366; 96367; 96375; 97110; 97116; 97161; 97165; 97530; 97535; 99285-25; A9270; G0008; J1644; J1940; J1956; J3480; J7050

== ENCOUNTER → 2022-12-23 | Outpatient (CLI) | payer MEDICARE, OTHER ==
[~2022-12-23] MED LIST changes: +AMIODARONE HCL200 M1 PO; +AMLO10 PO; +ASPI81CH PO; +Bisoprolol Fuma10 MG PO; +LOSARTAN POTAS100 M1 PO; +METO50ER PO; +PRAVASTATIN SOD10 M1 PO; +SYNTHROID125 MC1 PO; +TORS10 PO; +Ventolin/Proventil INH
== END | disposition home or self-care (01) ==
LOC: LAB SHORT 15:22 → LAB 15:22
DX: L08.0 Pyoderma (principal)
CPT/HCPCS: 87070; 87205